=== PATIENT | female | born 1970 | race Caucasian/White ===

== ENCOUNTER 2017-03-16 09:34 | Observation (INO) | payer OTHER ==
[~2017-03-16] VITALS: Ht 167.6 cm; Wt 65.7 kg
[2017-03-18] MEDS ORDERED: ZYRTEC DPS10 MG PO (11:51)
[2017-03-18] MEDS ORDERED: HYDROCODON-ACE1 EAC4 PO (11:52)
--- NOTE | 2017-03-19 09:14 | OR ---
ADMIT: 03/16/2017 RM/LOC: 519 [facility] MR#: [id number] [facility] [address] [place] [id number] [place] [address] Operative/Delivery Room Report SEX: F AGE: 46 : 1970 SURGERY DATE: 03/16/2017 SURGEON: Colton Mcmullen MD PREOPERATIVE DIAGNOSIS: Right displaced proximal humerus fracture. POSTOPERATIVE DIAGNOSIS: Right displaced proximal humerus fracture. PROCEDURE: Open reduction and internal fixation of right proximal humerus fracture using a short Synthes proximal humeral nail. STEAM TABLE ASSOCIATE: Bry Melton PA-C ANESTHESIA: General. ESTIMATED BLOOD LOSS: 50 mL. COMPLICATIONS: None. CONDITION: Stable to recovery room. INDICATIONS: The patient is a 46-year-old female, who was intoxicated, fell injuring her left shoulder last week on the 03/10. She went the next day to a Urgent Care. X-rays were obtained. She was found to have a proximal humerus fracture. She was then referred to our office for definitive care and treatment of this. The patient had a fair amount of pain, swelling, was otherwise distally neurovascularly intact. X-rays did show a displaced surgical neck proximal humerus fracture. We discussed treatment options with her. At this point, she wanted proceed with surgical fixation of this. We did talk to her about a short Synthes humeral nail. We discussed the procedure as well as risks benefits with her at length. Questions were answered and she did agree to proceed. DESCRIPTION OF PROCEDURE: After informed consent was obtained, the patient was taken to the operating room, placed on the operative table in supine position. General anesthetic was administered. The patient was then placed in a modified beach chair position. The left shoulder was then prepped and draped in usual sterile fashion. Once this was completed, we used fluoroscopy to get a good view of the proximal humerus. We then made an anterior acromial incision kind of lateral incision, but changing a bit anteriorly here. I dissected down through the skin and subcutaneous tissues. Hemostasis maintained using Bovie electrocautery. We then split the fibers of the deltoid into the subacromial space. The rotator cuff appeared normal with no tearing noted here. We then used a guidewire to find our spot for entry point on fluoroscopy. Once this was felt to be in good position, we then used a 15 blade and split longitudinally the fibers of the supraspinatus. We then placed a guidewire into the proximal humerus crossing the fracture site. Once this was completed, we opened the proximal humerus using a hand awl. We elected to use a 9 mm short Synthes humeral nail. We then placed this over ADMIT: 03/16/2017 RM/LOC: 519 [facility] MR#: [id number] [id number] [place] [address] [place] [address] Operative/Delivery Room Report SEX: F AGE: 46 : 1970 the guidewire into the proximal humerus. Once this was in position, we then held the forearm in external rotation about 30 degrees here and this appeared to line things up well at this point. We then placed the guide for the helical blade through the aiming arm. We then made a skin incision, dissected down bluntly using a hemostat the lateral cortex of the humerus. The guide was then placed on the lateral cortex of the humerus, guidewire was placed, this was noted to be in good position in both AP and lateral views. We then measured and elected to use a 44-mm helical blade. We then reamed over the guidewire with the lateral cortex reamer. We then placed the 44 helical blade onto the lateral cortex of the humerus making sure that the dry curer was parallel to the aiming arm. We then used a light mallet blows and completely inserted the helical blade until this was fully inserted. This was noted to be in good position not just slightly inferior in the head and not center on the lateral. Once this was completed and was noted to be in good position, we removed the dry curer on the nail, placed a neutral end cap and tightened this down to make the blade a fixed angle device here. Once this was completed, we then used the guide and made a second stab incision distally and dissected down bluntly to the lateral cortex of the humerus. The guide was then placed. We drilled placed a locking screw. We then did this again and placed a second locking screw in the distal portion of the nail. Once this was completed, the inserting arm was removed from the nail. We took AP and lateral fluoroscopic views with excellent position of the nail and good reduction of the fracture at this point. The wound was then copiously irrigated. The split and the rotator cuff was then reapproximated using 0 Vicryl in a [id number] fashion. The wounds once again copiously irrigated. The deltoid was closed using #1 Vicryl in a [id number] fashion and subcutaneous tissues were then closed using 2-0 Vicryl in simple interrupted fashion and a running Monocryl suture to close the skin. We then injected the subacromial space with 30 mL of 0.5% Marcaine with epinephrine for postoperative pain control, and we placed sterile compressive dressing consisting of Xeroform, plain gauze, ABDs, Medipore tape. The left upper extremity replaced into a sling. She was then transferred to recovery in stable condition. Colton Mcmullen MD/ melissa JOB #: [id number] CC: Colton Mcmullen, Attending Physician FAMILY PHYSICIAN, Family Physician
== END 2017-03-17 11:05 | disposition home or self-care (01) ==
LOC: 5MS 09:34 → WOR 09:34 → 5MS 15:17
PROVIDERS: ADMIT Orthopaedic Surgery
PROC: 0PSC04Z Reposition Right Humeral Head with Internal Fixation Device, Open Approach (ICD-10-PCS; principal; 2017-03-16)
DX: S42.201A Unspecified fracture of upper end of right humerus, initial encounter for closed fracture (principal); Z79.891 Long term (current) use of opiate analgesic; Z79.899 Other long term (current) drug therapy; W19.XXXA Unspecified fall, initial encounter